=== PATIENT | male | born 1995 | race Caucasian/White ===

== ENCOUNTER 2017-01-03 21:14 | Emergency (ER) | payer BC | END 2017-01-03 23:13 | disposition home or self-care (01) | LOC: ER 21:14 | DX: K80.50 Calculus of bile duct without cholangitis or cholecystitis without obstruction (principal); F17.210 Nicotine dependence, cigarettes, uncomplicated; Z87.442 Personal history of urinary calculi | CPT/HCPCS: 36415; 96361; 96374; 96375 ==